=== PATIENT | female | born 1955 | race Caucasian/White ===

== ENCOUNTER 2018-06-10 06:27 | Day surgery (SDC) | payer BC ==
[~2018-06-10 06:27] MED LIST: ACETAMINOPHEN 1,000 MG/100 ML BTL IV ONE
[2018-06-10] MEDS ORDERED: ONDANSETRON HCL IV 4 MG/2 ML VIAL IVP ONE (06:28)
[2018-06-10] MEDS ORDERED: KETOROLAC 30 MG/ML VIAL IVP ONE (06:28)
[2018-06-10] MEDS ORDERED: HYDROMORPHONE HCL 2 MG/ML VIAL IV ONE (06:28)
[2018-06-10] MEDS ORDERED: LIDOCAINE 2% MDV (20MG/ML) 20ML VIAL IV ONE (06:28)
[2018-06-10] MEDS ORDERED: HYDROCODONE/APAP 5/325MG TABLET PO ONE (06:28)
[2018-06-10] MEDS ORDERED: PROPOFOL 10 MG/ML VIAL IV ONE (06:28)
[2018-06-10] MEDS ORDERED: *PACU ONLY* KETAMINE HCL 10 MG/ML (20ML) VIAL IV ONE (06:28)
[2018-06-10] MEDS ORDERED: BUPIVACAINE 0.25% W/EPI MPF 30ML VIAL IVP ONE (06:28)
--- NOTE | 2018-06-11 09:40 | Operative Note ---
DATE OF SURGERY: 06/10/2018 Surgeon: Julian Singh DO PREOPERATIVE DIAGNOSES: 1. Torn medial meniscus of the right knee. 2. Chondromalacia of the right knee. POSTOPERATIVE DIAGNOSES: 1. Torn medial meniscus of right knee. 2. Medial mid patellar plica right knee. 3. Chondromalacia medial femoral condyle, lateral tibial plateau, and patella and trochlea, right knee. OPERATION: 1. Arthroscopic partial medial meniscectomy, right knee. 2. Arthroscopic resection of medial mid patellar plica, right knee. 3. Arthroscopic chondroplasty of the patella, medial femoral condyle, and trochlea, right knee. DESCRIPTION OF PROCEDURE: This 62-year-old female was taken to the operating room and placed in the supine position on the operating room table. General anesthetic was administered. The right lower extremity was elevated, exsanguinated, and the tourniquet inflated to 300 mmHg. Arthroscopic knee merrill applied. The right knee prepped with Hibiclens and draped in the usual sterile fashion. An inferolateral portal was established for the 4 mm arthroscope and initial evaluation of the joint demonstrated normal appearance of the suprapatellar pouch but there was a medial mid patella plica which was very thickened and fibrotic. This was resected through an inferior medial portal utilizing the rotating shaver. Grade 3 chondromalacia of the patella and grade 2 chondromalacia of the trochlea was present with marked loose fragments of articular cartilage which were debrided with a rotating shaver. The medial and lateral gutters were examined and loose joint bodies that were articular cartilage in nature were suctioned from the joint. The medial compartment was entered and the medial compartment demonstrated grade 2 chondromalacia the entire weightbearing surface of the medial femoral condyle. This was smoothed with the rotating shaver. This was mild grade 2 change. There was a tear of the root of the medial meniscus with a flap of meniscal tissue at the posterior attachment being present, and this was resected utilizing the rotating shaver. We made no attempt to repair the root of the medial meniscus. The intracondylar notch was examined and found to be normal. The lateral compartment was entered and a rather large loose joint body was tucked underneath the lateral meniscus. This was removed and also found to be a chunk of articular cartilage which was evacuated from the joint. The lateral meniscus and the articular cartilage of the lateral femoral condyle appeared entirely normal. There was grade 2 chondromalacia of the tibial plateau but it was not grossly unstable and it was not further disturbed. The wound was copiously irrigated with lactated Ringer's solution and suctioned. All areas were reexamined. No additional findings were present. The joint was suctioned, the instruments were removed, the portals infiltrated with 0.25% Marcaine with epinephrine. We placed two 4-0 nylon sutures in each arthroscopic puncture site. Sterile bandages were applied and the patient taken to the recovery room in satisfactory condition. GROSS PATHOLOGY: This patient demonstrated a tear of the root of the posterior horn of the medial meniscus. There was grade 2 chondromalacia of the trochlea, medial femoral condyle, and lateral tibial plateau with grade 3 changes noted at the patella, especially involving the medial facet. The patient also demonstrated a large medial mid patella plica as described. CC: PATRIA FLORENCE MD, FACP MTDD
== END 2018-06-10 11:10 | disposition home or self-care (01) ==
LOC: SUR 06:27
PROVIDERS: ATTEND Orthopaedic Surgery
DX: M94.261 Chondromalacia, right knee (principal); M67.51 Plica syndrome, right knee; E78.00 Pure hypercholesterolemia, unspecified; N20.0 Calculus of kidney; E03.9 Hypothyroidism, unspecified
CPT/HCPCS: 29881; 01400; J1885; J2405; J1170